=== PATIENT | female | born 2000 | race Caucasian/White ===

== ENCOUNTER 2020-11-05 11:42 | Inpatient (IN) | payer MEDICAID, OTHER ==
[~2020-11-05] VITALS: Ht 154.9 cm; Wt 86.2 kg
[2020-11-05] MEDS ORDERED: LIDOCAINE HCL 1% 20ML VIAL (Pyxis) INJ INFIL SCH (12:45)
[2020-11-05] MEDS ORDERED: CARBOPROST TROMETHAMINE 250 MCG/ML AMPUL IM PRN (12:45)
[2020-11-05] MEDS ORDERED: DEXT 5%/LACTATED RINGERS 1,000 ML IV PRN (12:45)
[2020-11-05] MEDS ORDERED: MISOPROSTOL 100MCG TABLET VG SCH (12:45)
[2020-11-05] MEDS ORDERED: BUTORPHANOL TARTRATE 2 MG/ML VIAL IV PRN (12:45)
[2020-11-05] MEDS ORDERED: METHYLERGONOVINE MALEATE 0.2 MG/ML IM PRN (12:45)
[2020-11-05] MEDS ORDERED: NALOXONE HCL 0.4 MG/ML 1ML VIAL IM PRN (12:45)
[2020-11-05 13:00] LABS: BASOPHILS % 0.2 % (0.0-2.0); EOSINOPHILS % 0.6 % (0.0-5.0); HEMATOCRIT. 33.2 % (36.0-48.0); HEMOGLOBIN. 11.4 g/dL (12.0-16.0); LYMPHOCYTES % 18.3 % (20.0-50.0); MEAN CORPUSCULAR VOLUME 81.9 fL (81.0-99.0); MEAN PLATELET VOLUME 9.2 fl (7.4-10.4); MONOCYTES % 5.7 % (2.0-8.0); NEUTROPHILS % 75.2 % (40.0-76.0); PLATELET 207 x1000/uL (130-400); RED BLOOD CELL COUNT 4.06 mill/uL (4.2-5.4); RED CELL DISTRIBUTION WIDTH 14.5 % (11.6-14.6)
[2020-11-05] MEDS: LACTATED RINGERS 1,000 ML IV PRN ×2 (13:03→16:34)
[2020-11-05 13:04] LABS: CLARITY URINE CLOUDY (CLEAR); COLOR URINE YELLOW (YELLOW); KETONES URINE NEGATIVE (NEGATIVE); LEUKOCYTE ESTERASE URINE 2+ (NEGATIVE); NITRITE URINE NEGATIVE (NEGATIVE); OCCULT BLOOD URINE NEGATIVE (NEGATIVE); PROTEIN URINE NEGATIVE (NEGATIVE); SPECIFIC GRAVITY URINE 1.018 (1.005-1.030); UROBILINOGEN URINE 0.2 E.U./dL (0.2-1.0)
[2020-11-05 13:11] LABS: INR 0.9; PARTIAL THROMBOPLASTIN TIME 24.8 sec (23.4-31.0); PROTHROMBIN TIME 9.6 sec (9.6-11.0)
[2020-11-05 13:30] LABS: HEPATITIS B SURFACE ANTIGEN NEGATIVE
[2020-11-05] MEDS ORDERED: ROPIVACAINE HCL/PF EPIDURAL 200 ML EP SCH (13:30)
[2020-11-05] MEDS: DEXT 5%/LR + PITOCIN 20UNITS/L 1,000 ML IV PRN (13:42)
[2020-11-06] MEDS: LACTATED RINGERS 1,000 ML IV PRN ×4 (01:19→20:22)
[2020-11-06] MEDS ORDERED: LIDOCAINE HCL 2%/EPINEPHRINE 1:100,000 20 ML VIAL INFIL ONE (07:20)
[2020-11-06] MEDS: DEXT 5%/LR + PITOCIN 20UNITS/L 1,000 ML IV PRN (09:27)
[2020-11-06] MEDS ORDERED: DEXT 5%/LR + PITOCIN 20UNITS/L 1,000 ML IV SCH ×2 (19:15→23:30)
[2020-11-06] MEDS ORDERED: AMPICILLIN 2,000 MG in SODIUM CHLORIDE 0.9% 100 ML IV SCH (19:15)
[2020-11-06] MEDS ORDERED: FENTANYL CITRATE/PF 50MCG/ML 2ML VIAL ONE (20:07)
[2020-11-06] MEDS ORDERED: ACETAMINOPHEN 325MG TABLET PO NR (20:58)
[2020-11-06] MEDS ORDERED: ONDANSETRON HCL 4MG/2ML INJ IV PRN (21:00)
[2020-11-06] MEDS ORDERED: HEMORRHOIDAL SUPP PR PRN (23:30)
[2020-11-06] MEDS ORDERED: IBUPROFEN 800MG TABLET PO PRN (23:30)
[2020-11-06] MEDS ORDERED: BENZOCAINE/LANOLIN/ALOE VERA SPRAY TOP PRN (23:30)
[2020-11-06] MEDS ORDERED: ACETAMINOPHEN WITH CODEINE 300/30MG TABLET PO PRN (23:30)
[2020-11-06] MEDS ORDERED: DIPHENHYDRAMINE 25MG CAPSULE PO PRN (23:30)
[2020-11-06] MEDS ORDERED: GLYCERIN/WITCH HAZEL LEAF MEDICATED PAD TOP PRN (23:30)
[2020-11-06] MEDS ORDERED: RHO(D) IMMUNE GLOBULIN 300 MCG/SYR IM PRN (23:30)
[2020-11-06] MEDS ORDERED: IBUPROFEN 400MG TABLET PO PRN (23:30)
[2020-11-06] MEDS ORDERED: BISACODYL 10MG SUPP PR PRN (23:30)
[2020-11-06] MEDS ORDERED: LANOLIN OINT 7GM TUBE TOP PRN (23:30)
[2020-11-07 01:25] VITALS: BP 107/62
[2020-11-07 02:00] VITALS: BP 117/73
[2020-11-07 04:00] VITALS: BP 105/56
[2020-11-07] MEDS: AMPICILLIN 1,000 MG in SODIUM CHLORIDE 0.9% 50 ML IV SCH ×3 (06:06→14:21)
[2020-11-07] MEDS: LACTATED RINGERS 1,000 ML IV PRN (06:07)
[2020-11-07 06:20] LABS: HEMATOCRIT. 30.5 % (36.0-48.0); HEMOGLOBIN. 9.9 g/dL (12.0-16.0); MEAN CORPUSCULAR HEMOGLOBIN 26.8 pg (28.0-32.0); MEAN CORPUSCULAR VOLUME 82.6 fL (81.0-99.0); MEAN PLATELET VOLUME 9.5 fl (7.4-10.4); PLATELET 199 x1000/uL (130-400); RED BLOOD CELL COUNT 3.69 mill/uL (4.2-5.4); RED CELL DISTRIBUTION WIDTH 14.6 % (11.6-14.6)
[2020-11-07 08:00] VITALS: BP 105/59
[2020-11-07] MEDS: PRENATAL VIT/FE FUMARATE/FA TABLET PO SCH (08:19)
[2020-11-07] MEDS: MAGNESIUM/ALUMINUM HYDROXIDE/SIMETHICONE 30ML UDC PO SCH ×4 (08:19→20:47)
[2020-11-07] MEDS: FERROUS SULFATE 325MG TABLET PO SCH ×2 (08:20→13:14)
[2020-11-07] MEDS: SIMETHICONE 80MG TABLET CHEW PO SCH ×4 (08:20→20:48)
[2020-11-07] MEDS ORDERED: CLINDAMYCIN 900 MG in DEXTROSE 5% WATER 50 ML IV SCH (09:15)
[2020-11-07] MEDS ORDERED: GENTAMICIN 80MG PREMIX 100 ML IV SCH (09:15)
[2020-11-07 10:12] LABS: CHLORIDE 111 mEq/L (98-107)
[2020-11-07] MEDS ORDERED: GENTAMICIN 100MG PREMIX 100 ML IV SCH (12:00)
[2020-11-07] MEDS: CLINDAMYCIN 900 MG PREMIX 50 ML IV SCH ×2 (12:12→19:43)
[2020-11-07] MEDS: GENTAMICIN 100MG PREMIX 50 ML IV SCH (13:16)
[2020-11-07 16:02] LABS: PLATELET ESTIMATE NORMAL
[2020-11-07 16:48] VITALS: BP 123/79
[2020-11-07 19:40] VITALS: BP 104/53
[2020-11-07] MEDS: DOCUSATE SODIUM 100MG CAPSULE PO SCH (20:48)
[2020-11-08 00:01] VITALS: BP 102/64
[2020-11-08] MEDS: GENTAMICIN 100MG PREMIX 50 ML IV SCH ×2 (00:56→12:54)
[2020-11-08] MEDS: CLINDAMYCIN 900 MG PREMIX 50 ML IV SCH ×3 (03:36→19:30)
[2020-11-08 03:40] VITALS: BP 93/51
[2020-11-08 07:15] VITALS: BP 102/62
[2020-11-08 07:24] LABS: BASOPHILS % 0.3 % (0.0-2.0); EOSINOPHILS % 0.3 % (0.0-5.0); HEMATOCRIT. 25.7 % (36.0-48.0); HEMOGLOBIN. 8.7 g/dL (12.0-16.0); LYMPHOCYTES % 14.7 % (20.0-50.0); MEAN CORPUSCULAR HEMOGLOBIN 28.1 pg (28.0-32.0); MEAN CORPUSCULAR VOLUME 82.4 fL (81.0-99.0); MEAN PLATELET VOLUME 9.1 fl (7.4-10.4); MONOCYTES % 5.6 % (2.0-8.0); NEUTROPHILS % 79.1 % (40.0-76.0); PLATELET 159 x1000/uL (130-400); RED BLOOD CELL COUNT 3.11 mill/uL (4.2-5.4); RED CELL DISTRIBUTION WIDTH 14.5 % (11.6-14.6)
[2020-11-08 09:08] LABS: *AMPHETAMINES SCREEN URINE NEGATIVE (NEGATIVE); *BARBITURATES SCREEN URINE NEGATIVE (NEGATIVE); *BENZODIAZEPINES SCREEN URINE NEGATIVE (NEGATIVE); *COCAINE SCREEN URINE NEGATIVE (NEGATIVE); CANNABINOID URINE SCREEN NEGATIVE (NEGATIVE); METHADONE URINE SCREEN NEGATIVE (NEGATIVE); PHENCYCLIDINE URINE SCREEN NEGATIVE (NEGATIVE)
[2020-11-08 09:16] LABS: OPIATES URINE SCREEN PRESUMTIVE POSITIVE (NEGATIVE)
[2020-11-08] MEDS: SIMETHICONE 80MG TABLET CHEW PO SCH ×4 (09:52→21:34)
[2020-11-08] MEDS: FERROUS SULFATE 325MG TABLET PO SCH ×3 (09:52→18:02)
[2020-11-08] MEDS: MAGNESIUM/ALUMINUM HYDROXIDE/SIMETHICONE 30ML UDC PO SCH ×4 (09:52→21:34)
[2020-11-08] MEDS: PRENATAL VIT/FE FUMARATE/FA TABLET PO SCH (09:52)
[2020-11-08 17:00] VITALS: BP 96/65
[2020-11-08 20:00] VITALS: BP 125/76
[2020-11-08] MEDS: DOCUSATE SODIUM 100MG CAPSULE PO SCH (21:34)
[2020-11-09] MEDS: GENTAMICIN 100MG PREMIX 50 ML IV SCH ×2 (01:00→13:18)
[2020-11-09] MEDS: CLINDAMYCIN 900 MG PREMIX 50 ML IV SCH ×2 (03:25→10:22)
[2020-11-09 04:00] VITALS: BP 98/55
[2020-11-09] MEDS ORDERED: LACTATED RINGERS 1,000 ML IV PRN (06:15)
[2020-11-09 06:52] LABS: BASOPHILS % 0.3 % (0.0-2.0); EOSINOPHILS % 2.1 % (0.0-5.0); HEMATOCRIT. 30.7 % (36.0-48.0); HEMOGLOBIN. 10.3 g/dL (12.0-16.0); LYMPHOCYTES % 21.5 % (20.0-50.0); MEAN CORPUSCULAR HEMOGLOBIN 27.9 pg (28.0-32.0); MEAN CORPUSCULAR VOLUME 82.8 fL (81.0-99.0); MEAN PLATELET VOLUME 8.8 fl (7.4-10.4); MONOCYTES % 6.1 % (2.0-8.0); PLATELET 204 x1000/uL (130-400); RED BLOOD CELL COUNT 3.71 mill/uL (4.2-5.4)
[2020-11-09] MEDS: FERROUS SULFATE 325MG TABLET PO SCH (07:30)
[2020-11-09 08:08] LABS: CHLORIDE 108 mEq/L (98-107)
[2020-11-09 08:20] LABS: GENTAMICIN RANDOM 1.7 ug/mL
[2020-11-09 08:30] VITALS: BP 114/60
[2020-11-09] MEDS: MAGNESIUM/ALUMINUM HYDROXIDE/SIMETHICONE 30ML UDC PO SCH ×2 (08:47→13:19)
[2020-11-09] MEDS: PRENATAL VIT/FE FUMARATE/FA TABLET PO SCH (08:47)
[2020-11-09] MEDS: SIMETHICONE 80MG TABLET CHEW PO SCH ×2 (08:48→13:19)
[2020-11-09] MEDS ORDERED: CLINDAMYCIN 900 MG in DEXTROSE 5% WATER 50 ML IV SCH (11:00)
[2020-11-09] MEDS ORDERED: CLINDAMYCIN 900 MG in SODIUM CHLORIDE 0.9% 50 ML IV SCH (11:00)
[2020-11-09] MEDS ORDERED: GENTAMICIN 100MG PREMIX 50 ML IV SCH (13:00)
[2020-11-13 14:12] LABS: OPIATES CONFIRMATION URINE Positive (.)
== END 2020-11-09 16:30 | disposition home or self-care (01) | DRG 560 ==
LOC: OBSVTOIN 11:42 → 8 EST LDRP 11:42 → 8EST 11-07 03:43
PROVIDERS: ADMIT Obstetrics & Gynecology; ATTEND Obstetrics & Gynecology
PROC: 10E0XZZ Delivery of Products of Conception, External Approach (ICD-10-PCS; principal; 2020-11-06)
PROC: 10907ZC Drainage of Amniotic Fluid, Therapeutic from Products of Conception, Via Natural or Artificial Opening (ICD-10-PCS; 2020-11-06)
PROC: 3E0R3BZ Introduction of Anesthetic Agent into Spinal Canal, Percutaneous Approach (ICD-10-PCS; 2020-11-06)
PROC: 00HU33Z Insertion of Infusion Device into Spinal Canal, Percutaneous Approach (ICD-10-PCS; 2020-11-06)
PROC: 0KQM0ZZ Repair Perineum Muscle, Open Approach (ICD-10-PCS; 2020-11-06)
DX: O69.81X0 Labor and delivery complicated by cord around neck, without compression, not applicable or unspecified (principal); O41.03X0 Oligohydramnios, third trimester, not applicable or unspecified; O86.4 Pyrexia of unknown origin following delivery; O99.13 Other diseases of the blood and blood-forming organs and certain disorders involving the immune mechanism complicating the puerperium; D72.829 Elevated white blood cell count, unspecified; Z37.0 Single live birth; Z3A.38 38 weeks gestation of pregnancy; O70.1 Second degree perineal laceration during delivery
CPT/HCPCS: 36415; 80048; 80170; 80305; 80361; 81003; 85025; 86592; 86703; 86762; 86850; 86900; 87340; J0290; J0595; J1580; J2405; J2590; J2795; J3010; J3490; J7050; J7060; Q0163

== ENCOUNTER 2020-12-15 17:14 | Emergency (ER) | payer MEDICAID ==
[~2020-12-15] VITALS: Ht 162.6 cm; Wt 80.0 kg
[2020-12-15 17:39] VITALS: BP 123/76
== END 2020-12-15 20:20 | disposition left against medical advice (07) ==
LOC: ER 17:14
DX: N93.8 Other specified abnormal uterine and vaginal bleeding (principal); Z53.21 Procedure and treatment not carried out due to patient leaving prior to being seen by health care provider